=== PATIENT | male | born 1995 | race Caucasian/White ===

== ENCOUNTER 2017-08-25 23:36 | Emergency (ER) | payer OTHER ==
[2017-08-26] MEDS ORDERED: ONDANSETRON HCL INJ/PF 4 MG/2 ML SDV IV ONE (00:24)
[2017-08-26] MEDS ORDERED: MORPHINE SULFATE 10 MG/ML INJ IV ONE ×2 (00:28→03:34)
--- NOTE | 2017-08-26 00:33 | ER Document Report ---
ED General - General Chief Complaint: Low Back Pain Stated Complaint: BACK PAIN Time Seen by Provider: 08/26/17 00:15 Mode of Arrival: Ambulatory Information source: Patient TRAVEL OUTSIDE OF THE [place] IN LAST 30 DAYS: No - HPI Notes: Patient is a 21-year-old male history of asthma and kidney stones presents to the emergency department with report that he fell month and half ago may have injured his back but felt better and then tonight after eating he developed right mid back pain and right upper quadrant pain with associated nausea and vomited once without hematemesis. The patient states the pain came on after he ate. No chest pain or diarrhea or dysuria or hematuria. No fever chills, no numbness or paresthesia - Related Data Allergies/Adverse Reactions: acetaminophen [From Vicodin] Allergy (Verified 08/25/17 23:43) hydrocodone [From Vicodin] Allergy (Verified 08/25/17 23:43) hydromorphone [From Dilaudid] Allergy (Verified 08/25/17 23:43) Past Medical History - General Information source: Patient - Social History Smoking Status: Current Every Day Smoker Frequency of alcohol use: None Drug Abuse: None Lives with: Alone Family History: Reviewed & Not Pertinent Review of Systems - Review of Systems Notes: REVIEW OF SYSTEMS: CONSTITUTIONAL : Denies fever, chills, or sweats. Denies recent illness. EENT: Denies eye, ear, throat, or mouth pain or symptoms. Denies nasal or sinus congestion or discharge. Denies throat, tongue, or mouth swelling or difficulty swallowing. CARDIOVASCULAR: Denies chest pain. Denies palpitations or racing or irregular heart beat. Denies ankle edema. RESPIRATORY: Denies cough, cold, or chest congestion. Denies shortness of breath, difficulty breathing, or wheezing. GASTROINTESTINAL: Denies abdominal distention. Denies diarrhea. Denies blood in vomitus, stools, or per rectum. Denies black, tarry stools. Denies constipation, but last bowel movement was yesterday. GENITOURINARY: Denies difficulty urinating, painful urination, burning, frequency, blood in urine, or discharge. MUSCULOSKELETAL: Denies neck pain or stiffness. Denies joint pain or swelling. SKIN: Denies rash, lesions or sores. HEMATOLOGIC : Denies easy bruising or bleeding. LYMPHATIC: Denies swollen, enlarged glands. NEUROLOGICAL: Denies confusion or altered mental status. Denies passing out or loss of consciousness. Denies dizziness or lightheadedness. Denies headache. Denies weakness or paralysis or loss of use of either side. Denies problems with gait or speech. Denies sensory loss, numbness, or tingling. Denies seizures. PSYCHIATRIC: Denies anxiety or stress. Denies depression, suicidal ideation, or homicidal ideation. ALL OTHER SYSTEMS REVIEWED AND NEGATIVE. Dictation was performed using [employer] voice recognition software Physical Exam - Vital signs Vitals: Temp Pulse Resp BP Pulse Ox 99.1 F 87 20 125/78 96 08/25/17 23:45 08/25/17 23:45 08/25/17 23:45 08/25/17 23:45 08/25/17 23:45 - Notes Notes: PHYSICAL EXAMINATION: GENERAL: Well-appearing, well-nourished and in mild discomfort.. HEAD: Atraumatic, normocephalic. EYES: Pupils equal round and reactive to light, extraocular movements intact, sclera anicteric, conjunctiva are normal. ENT: Nares patent, oropharynx clear without exudates. Moist mucous membranes. NECK: Normal range of motion, supple without lymphadenopathy LUNGS: Breath sounds clear to auscultation bilaterally and equal. No wheezes rales or rhonchi. HEART: Regular rate and rhythm without murmurs ABDOMEN: Soft abdomen. No guarding, no rebound. No masses appreciated. Tender through the right upper quadrant with a positive Villavicencio's. No obvious hepatosplenomegaly Musculoskeletal: Normal range of motion, no pitting or edema. No cyanosis. Pain through the right mid back region seems to radiate from the right upper quadrant. NEUROLOGICAL: Cranial nerves grossly intact. Normal speech, normal gait. Normal sensory, motor exams PSYCH: Normal mood, normal affect. SKIN: Warm, Dry, normal turgor, no rashes or lesions noted. Course - Re-evaluation Re-evalutation: 08/26/17 00:32 IV Zofran and morphine ordered. The patient states his previous reaction to hydrocodone and hydromorphone was nausea, but the patient has tolerated Percocet before. Right upper quadrant abdominal ultrasound, CBC, CMP, lipase and urinalysis ordered. There is concern for acute cholecystitis. Less likely would be renal stone versus constipation as an etiology. - Vital Signs Vital signs: Temp Pulse Resp BP Pulse Ox 99.1 F 87 20 125/78 96 08/25/17 23:45 08/25/17 23:45 08/25/17 23:45 08/25/17 23:45 08/25/17 23:45 Discharge - Discharge Clinical Impression: Abdominal pain Qualifiers: Abdominal location: right upper quadrant Qualified Code(s): R10.11 - Right upper quadrant pain Back pain Qualifiers: Back pain location: back pain in other location Chronicity: acute Qualified Code(s): M54.9 - Dorsalgia, unspecified
[2017-08-26 01:43] LABS: APPEARANCE,URINE SLIGHTLY-CLOUDY; BILIRUBIN,URINE NEGATIVE (NEGATIVE); COLOR,URINE YELLOW; GLUCOSE, URINE NEGATIVE (NEGATIVE); KETONES,URINE NEGATIVE (NEGATIVE); LEUKOCYTE ESTERASE,URINE NEGATIVE (NEGATIVE); NITRITE,URINE NEGATIVE (NEGATIVE); PROTEIN,URINE 30 mg/dL (NEGATIVE); URINE SPECIFIC GRAVITY 1.024; UROBILINOGEN,URINE NEGATIVE mg/dL (<2.0)
[2017-08-26 01:52] LABS: ABSOLUTE BASOPHILS # (AUTO) 0.1 10^3/uL (0.0-0.2); ABSOLUTE LYMPHOCYTES (AUTO) 1.9 10^3/uL (0.5-4.7); ABSOLUTE MONOCYTES (AUTO) 0.8 10^3/uL (0.1-1.4); ABSOLUTE NEUT (AUTO) 9.1 10^3/uL (1.7-8.2); BASOPHILS % (AUTO) 0.7 % (0-2); EOSINOPHILS % (AUTO) 0.2 % (0-6); HEMATOCRIT 45.1 % (37.9-51.0); HEMOGLOBIN 15.5 g/dL (13.5-17.0); MEAN CORPUSCULAR HEMOGLOBIN 28.5 pg (27.0-33.4); MEAN CORPUSCULAR HGB CONC 34.4 g/dL (32.0-36.0); MEAN CORPUSCULAR VOLUME 83 fl (80-97); MONOCYTES % (AUTO) 6.7 % (3-13); PLATELET COUNT 278 10^3/uL (150-450); RED BLOOD COUNT 5.45 10^6/uL (4.35-5.55); SEGMENTED NEUTROPHILS % (AUTO) 76.4 % (42-78); TOTAL CELLS COUNTED % (AUTO) 100 %; WHITE BLOOD COUNT 11.9 10^3/uL (4.0-10.5)
[2017-08-26 02:17] LABS: ALANINE AMINOTRANSFERASE 124 U/L (21-72); ALBUMIN 4.6 g/dL (3.5-5.0); ALKALINE PHOSPHATASE 73 U/L (38-126); ANION GAP 17 (5-19); ASPARTATE AMINO TRANSFERASE 59 U/L (17-59); BILIRUBIN,DIRECT 0.3 mg/dL (0.0-0.4); BILIRUBIN,TOTAL 0.3 mg/dL (0.2-1.3); BLOOD UREA NITROGEN 15 mg/dL (7-20); CALCIUM 10.3 mg/dL (8.4-10.2); CARBON DIOXIDE 25 mmol/L (22-30); CHLORIDE 107 mmol/L (98-107); GLUCOSE 105 mg/dL (75-110); LIPASE 106.3 U/L (23-300); SODIUM 149.4 mmol/L (137-145); TOTAL PROTEIN 7.1 g/dL (6.3-8.2)
--- NOTE | 2017-08-26 02:56 | RADIOLOGY REPORT (SQ) ---
EXAM DESCRIPTION: US ABDOMEN LIMITED CLINICAL HISTORY: 21 years Male, RUQ pain Comparison: None. LIMITATIONS: None. FINDINGS: Gallbladder, negative sonographic Villavicencio's test, moderate hepatic steatosis, a 0.3-cm diameter common bile duct, no intrahepatic ductal dilation, 12-cm right kidney, obscured pancreas, visualized vasculature/abdominal aorta, and no significant ascites appear otherwise unremarkable. IMPRESSION: No acute findings. Hepatic steatosis. Obscured pancreas.
[2017-08-26] MEDS ORDERED: KETOROLAC TROMETHAMINE INJ/PF 30 MG/1 ML SDV IV ONE (03:33)
[2017-08-26] MEDS ORDERED: NORMAL SALINE 1000 ML 1,000 ML IV ONE (03:34)
--- NOTE | 2017-08-26 04:23 | RADIOLOGY REPORT (SQ) ---
EXAM DESCRIPTION: CT ABDOMEN WITHOUT IV CONTRAST CLINICAL HISTORY: 21 years Male, RUQ PAIN THAT BEGAN SUDDEN ONSET AFTER EATING A BURGER. VOMITING X1 Comparison: Ultrasound, same day. Technique: No contrast. Coronal and sagittal reformat. This exam was performed according to our departmental dose-optimization program, which includes automated exposure control, adjustment of the mA and/or kV according to patient size and/or use of iterative reconstruction technique.[facility]: Dose Right [facility]: CareDose [facility]: Dose Right [facility]: Teradose 4D [facility]: [employer] LIMITATIONS: None. Findings: Moderate hepatic steatosis. Normal appendix. Punctate renal stone of each kidney. Unenhanced lower thorax, abdominopelvic structures, and musculoskeleton appear otherwise grossly unremarkable. Impression: No acute findings. Moderate hepatic steatosis. Punctate bilateral nephrolithiasis.
[2017-08-26 05:59] VITALS: BP 126/78
== END 2017-08-26 05:57 | disposition home or self-care (01) ==
LOC: ER 23:36
DX: M54.5 Low back pain (principal); K76.0 Fatty (change of) liver, not elsewhere classified; R10.11 Right upper quadrant pain; R31.9 Hematuria, unspecified; J45.909 Unspecified asthma, uncomplicated; R11.2 Nausea with vomiting, unspecified; F17.200 Nicotine dependence, unspecified, uncomplicated; Z87.442 Personal history of urinary calculi; Z88.5 Allergy status to narcotic agent; Z88.6 Allergy status to analgesic agent
CPT/HCPCS: 96376; 99284; 96361; 96374; 96375; 36415; 83690; 85025; 80053; 81001; 76705; 74150; J1885; J2270; J2405; J7030

== ENCOUNTER 2017-10-21 18:19 | Emergency (ER) | payer SELFPAY ==
[2017-10-21] MEDS ORDERED: NORMAL SALINE 1000 ML 1,000 ML IV ONE ×2 (18:45→21:24)
[2017-10-21] MEDS ORDERED: FENTANYL CITRATE INJ/PF 100 MCG/2 ML AMPUL IV ONE ×2 (18:46→21:24)
--- NOTE | 2017-10-21 18:47 | ER Document Report ---
ED Medical Screen (RME) - General Chief Complaint: Possible Kidney Stone Stated Complaint: BACK PAIN Time Seen by Provider: 10/21/17 18:45 Notes: RAPID MEDICAL EVALUATION DISCLOSURE I have seen this patient as part of a Rapid Medical Evaluation and, if applicable, placed any initially appropriate orders. The patient will be seen and fully evaluated, including a full history and physical exam, by a provider ( in Main ED or Fast Track) when a room becomes available. 21-year-old male PMH left-sided kidney stones here with several hours of left flank pain radiating to the abdomen and down into the groin as well as nausea hematuria decreased urination. He has tried drinking water but has not taken any medicine for the symptoms. He had similar symptoms several months ago and imaging showed "a bunch of kidney stones". TRAVEL OUTSIDE OF THE [place] IN LAST 30 DAYS: No - Related Data Allergies/Adverse Reactions: acetaminophen [From Vicodin] Allergy (Verified 08/25/17 23:43) hydrocodone [From Vicodin] Allergy (Verified 08/25/17 23:43) hydromorphone [From Dilaudid] Allergy (Verified 08/25/17 23:43) Past Medical History Renal/ Medical History: Denies: Hx Peritoneal Dialysis Past Surgical History: Reports: Hx Oral Surgery - jaw Physical Exam - Vital signs Vitals: Temp Pulse Resp BP Pulse Ox 98.8 F 75 18 132/77 H 97 10/21/17 18:24 10/21/17 18:24 10/21/17 18:24 10/21/17 18:24 10/21/17 18:24 Course - Vital Signs Vital signs: Temp Pulse Resp BP Pulse Ox 98.8 F 75 18 132/77 H 97 10/21/17 18:24 10/21/17 18:24 10/21/17 18:24 10/21/17 18:24 10/21/17 18:24
[2017-10-21 19:12] LABS: APPEARANCE,URINE SLIGHTLY-CLOUDY; BILIRUBIN,URINE NEGATIVE (NEGATIVE); COLOR,URINE YELLOW; GLUCOSE, URINE NEGATIVE (NEGATIVE); KETONES,URINE NEGATIVE (NEGATIVE); LEUKOCYTE ESTERASE,URINE NEGATIVE (NEGATIVE); NITRITE,URINE NEGATIVE (NEGATIVE); PROTEIN,URINE NEGATIVE (NEGATIVE); URINE SPECIFIC GRAVITY 1.019
[2017-10-21 19:20] LABS: ABSOLUTE BASOPHILS # (AUTO) 0.1 10^3/uL (0.0-0.2); ABSOLUTE EOSINOPHILS # (AUTO) 0.1 10^3/uL (0.0-0.6); ABSOLUTE LYMPHOCYTES (AUTO) 2.5 10^3/uL (0.5-4.7); ABSOLUTE MONOCYTES (AUTO) 0.6 10^3/uL (0.1-1.4); ABSOLUTE NEUT (AUTO) 4.3 10^3/uL (1.7-8.2); BASOPHILS % (AUTO) 1.1 % (0-2); EOSINOPHILS % (AUTO) 0.8 % (0-6); HEMATOCRIT 45.8 % (37.9-51.0); HEMOGLOBIN 16.1 g/dL (13.5-17.0); LYMPHOCYTES % (AUTO) 33.5 % (13-45); MEAN CORPUSCULAR HEMOGLOBIN 29.2 pg (27.0-33.4); MEAN CORPUSCULAR VOLUME 83 fl (80-97); MONOCYTES % (AUTO) 7.4 % (3-13); PLATELET COUNT 274 10^3/uL (150-450); RED CELL DISTRIBUTION WIDTH 12.8 % (11.5-14.0); SEGMENTED NEUTROPHILS % (AUTO) 57.2 % (42-78); TOTAL CELLS COUNTED % (AUTO) 100 %; WHITE BLOOD COUNT 7.5 10^3/uL (4.0-10.5)
[2017-10-21 19:34] LABS: ALANINE AMINOTRANSFERASE 132 U/L (21-72); ALBUMIN 4.8 g/dL (3.5-5.0); ALKALINE PHOSPHATASE 86 U/L (38-126); ANION GAP 15 (5-19); ASPARTATE AMINO TRANSFERASE 64 U/L (17-59); BILIRUBIN,DIRECT 0.3 mg/dL (0.0-0.4); BILIRUBIN,TOTAL 0.4 mg/dL (0.2-1.3); BLOOD UREA NITROGEN 12 mg/dL (7-20); CALCIUM 9.8 mg/dL (8.4-10.2); CARBON DIOXIDE 24 mmol/L (22-30); CHLORIDE 105 mmol/L (98-107); GLUCOSE 85 mg/dL (75-110); LIPASE 102.8 U/L (23-300); POTASSIUM 4.5 mmol/L (3.6-5.0); SODIUM 144.2 mmol/L (137-145); TOTAL PROTEIN 7.8 g/dL (6.3-8.2)
--- NOTE | 2017-10-21 21:28 | ER Document Report ---
ED GI/ - General Mode of Arrival: Ambulatory Information source: Patient TRAVEL OUTSIDE OF THE [place] IN LAST 30 DAYS: No <ALPA FLORES - Last Filed: 10/21/17 23:46> <DEWEY ALVAREZ - Last Filed: 10/21/17 23:48> - General Chief Complaint: Possible Kidney Stone Stated Complaint: BACK PAIN Time Seen by Provider: 10/21/17 18:45 Notes: Patient is a 21-year-old male with a history of kidney stones presents emergency department complaining of left flank pain, abdominal pain and testicular pain onset today. Patient states that he was officially diagnosed with kidney stones 3 months ago but he has had kidney stones since high school. He states today his pain is more severe and radiates from his left flank into his abdomen and testicles which is abnormal from previous kidney stones. Patient states he has been unable to urinate further stating he was in the bathroom for 2 hours attempting to do so. He states when he did urinate, he only produced a small amount and noticed some hematuria. Patient also complains of some nausea and diarrhea. Patient denies rashes, penile discharge or testicular swelling. (ALPA FLORES) - Related Data Allergies/Adverse Reactions: acetaminophen [From Vicodin] Allergy (Verified 08/25/17 23:43) hydrocodone [From Vicodin] Allergy (Verified 08/25/17 23:43) hydromorphone [From Dilaudid] Allergy (Verified 08/25/17 23:43) Past Medical History - General Information source: Patient - Social History Smoking Status: Current Every Day Smoker Frequency of alcohol use: Occasional Family History: Reviewed & Not Pertinent Patient has suicidal ideation: No Patient has homicidal ideation: No Past Surgical History: Reports: Hx Oral Surgery - jaw <ALPA FLORES - Last Filed: 10/21/17 23:46> Review of Systems - Review of Systems Constitutional: No symptoms reported EENT: No symptoms reported Cardiovascular: No symptoms reported Respiratory: No symptoms reported Gastrointestinal: See HPI, Abdominal pain, Nausea Genitourinary: See HPI, Dysuria, Hematuria, Retention Male Genitourinary: See HPI, Testicular pain Musculoskeletal: No symptoms reported Skin: No symptoms reported Hematologic/Lymphatic: No symptoms reported Neurological/Psychological: No symptoms reported -: Yes All other systems reviewed and negative <ALPA FLORES - Last Filed: 10/21/17 23:46> Physical Exam <ALPA FLORES - Last Filed: 10/21/17 23:46> <DEWEY ALVAREZ - Last Filed: 10/21/17 23:48> - Vital signs Vitals: Temp Pulse Resp BP Pulse Ox 98.8 F 75 18 132/77 H 97 10/21/17 18:24 10/21/17 18:24 10/21/17 18:24 10/21/17 18:24 10/21/17 18:24 - Notes Notes: GENERAL: Alert, interacts well. No acute distress. HEAD: Normocephalic, atraumatic. EYES: Pupils equal, round, and reactive to light. Extraocular movements intact. ENT: Oral mucosa moist, tongue midline. NECK: Full range of motion. Supple. Trachea midline. LUNGS: Clear to auscultation bilaterally, no wheezes, rales, or rhonchi. No respiratory distress. HEART: Regular rate and rhythm. No murmurs, gallops, or rubs. ABDOMEN: Soft, bilateral lower abdomen tenderness to palpation. Non-distended. Bowel sounds present in all 4 quadrants. EXTREMITIES: Moves all 4 extremities spontaneously. NEUROLOGICAL: Alert and oriented x3. Normal speech. PSYCH: Normal affect, normal mood. SKIN: Warm, dry, normal turgor. No rashes or lesions noted. GI/: Left testicle is slightly larger than right. Testicle tender to palpation bilaterally. Cremasteric reflexes intact bilaterally. No fluid in scrotum. No erythema. No penile discharge. BACK: Mild left CVA tenderness to percussion. (ALPA FLORES) Course - Laboratory Result Diagrams: 10/21/17 19:05 10/21/17 19:05 <ALPA FLORES - Last Filed: 10/21/17 23:46> - Laboratory Result Diagrams: 10/21/17 19:05 10/21/17 19:05 <DEWEY ALVAREZ - Last Filed: 10/21/17 23:48> - Re-evaluation Re-evalutation: 10/21/17 23:33 CBC unremarkable, CMP shows elevated AST at 64 and elevated ALT at 132 otherwise unremarkable, lipase normal, urinalysis shows small blood, only 18 RBCs, no evidence of infection, CT scan of the abdomen and pelvis with IV contrast was ordered as the patient does have lower abdominal tenderness palpation particularly over the right lower quadrant, his labs are not classic for kidney stone. CT scan does not reveal any evidence of ureteral stone, hydronephrosis, perinephric stranding, appendicitis or inflammatory change of the intestines. He does have some fatty metamorphosis of the liver without any significant hepatomegaly. At present I do not have an exact explanation for his pain. Torsion is unlikely as he has cremasteric reflexes intact bilaterally and there is no significant swelling to the bilateral testes. Ultrasound will not be performed at this time. Patient has been hydrated with normal saline. Discharge to home, encouraged to drink plenty of fluids and return to the emergency department for worsening abdominal pain, vomiting, fevers or any new or concerning symptoms. (DEWEY ALVAREZ) - Vital Signs Vital signs: Temp Pulse Resp BP Pulse Ox 98.8 F 75 18 132/77 H 97 10/21/17 18:24 10/21/17 18:24 10/21/17 18:24 10/21/17 18:24 10/21/17 18:24 - Laboratory Laboratory results interpreted by me: 10/21/17 10/21/17 18:55 19:05 AST 64 H ALT 132 H Urine Blood SMALL H Urine Urobilinogen 2.0 H Discharge <ALPA FLORES - Last Filed: 10/21/17 23:46> <DEWEY ALVAREZ - Last Filed: 10/21/17 23:48> - Discharge Clinical Impression: Bilateral lower abdominal pain Condition: Stable Disposition: HOME, SELF-CARE Additional Instructions: Today we did not find any abnormalities on CAT scan, there was no evidence of appendicitis, intra-abdominal infection or kidney stone. Your urinalysis showed a small amount of blood but no evidence of infection. Your blood work did not show any signs of infection. Please drink plenty of fluid, take ibuprofen up to 800 mg every 8 hours as needed for pain. Should your pain worsen, you develop swelling to your testicles or scrotum or an inability to urinate and all please return to the emergency department. Please also return for any new or concerning symptoms. Forms: Return to Work Referrals: KATHY VALLADARES MD [GURVINDER ESPINOZA] - Follow up as needed Scribe Attestation: 10/21/17 23:48 I personally performed the services described in the documentation, reviewed and edited the documentation which was dictated to the scribe in my presence, and it accurately records my words and actions. (DEWEY ALVAREZ)
--- NOTE | 2017-10-21 23:29 | RADIOLOGY REPORT (SQ) ---
PROCEDURE: CT of the abdomen and pelvis with intravenous contrast HISTORY: B/L lower abd pain, minimal blood in urine Indication: Same as above Comparison: None . Technique: CT of the abdomen and pelvis was done with intravenous contrast. Images were obtained from the lung base to the level of the pubic symphysis in axial plane, followed by orthogonal sagittal and coronal reconstruction. Oral contrast was not given for the study. The patient was injected with radiographic contrast intravenously, without any documented immediate adverse reactions. This exam was performed according to our departmental dose-optimization program, which includes automated exposure control, adjustment of the mA and/or KV according to the patient's size and/or use of iterative reconstruction technique. FINDINGS: Images through the lung bases do not show any focal infiltrates or pleural effusions. The gallbladder, pancreas, spleen and the bilateral adrenal glands appear unremarkable. There is fatty metamorphosis of the liver The bilateral kidneys enhance with contrast in a normal fashion. The urinary bladder is unremarkable . The bilateral ureters and the bilateral periureteral soft tissues and fat planes are unremarkable. The small bowel appears unremarkable, without any evidence of small bowel obstruction or bowel wall thickening. There is no CT evidence of acute appendicitis, pericecal inflammatory change or ileocecal mesenteric adenitis. The ileocecal junction appears unremarkable. There is no CT evidence of acute colonic diverticulitis or colitis or large bowel obstruction. The splenic and portal veins are of normal caliber, without any filling defects. There is no pathological lymphadenopathy in the retroperitoneum or in the pelvic region. There is no evidence of free fluid or free air in the abdomen or the pelvic region. There is no clinically significant abdominal aortic aneurysm. There is no clinically significant inguinal or ventral hernia. The visualized lumbar spine is unremarkable . The paravertebral soft tissues are unremarkable. The remainder of the pelvic structures are unremarkable. IMPRESSION: There are no acute findings in the abdomen or the pelvis. There is fatty metamorphosis of the liver without any significant hepatomegaly. Location of Interpretation: [facility]
[2017-10-21 23:59] VITALS: BP 123/84
== END 2017-10-22 00:30 | disposition home or self-care (01) ==
LOC: ER 18:19
DX: R10.30 Lower abdominal pain, unspecified (principal); N50.812 Left testicular pain; N50.811 Right testicular pain; R11.0 Nausea; R31.9 Hematuria, unspecified; R33.9 Retention of urine, unspecified; R30.0 Dysuria; F17.200 Nicotine dependence, unspecified, uncomplicated; Z87.442 Personal history of urinary calculi; Z88.6 Allergy status to analgesic agent
CPT/HCPCS: 96376; 99284; 96361; 96374; 36415; 83690; 85025; 80053; 81001; 74177; J3010; J7030

== ENCOUNTER 2018-06-28 06:43 | Emergency (ER) | payer SELFPAY ==
[2018-06-28] MEDS ORDERED: NORMAL SALINE 1000 ML 1,000 ML IV ONE (07:00)
[2018-06-28] MEDS ORDERED: KETOROLAC TROMETHAMINE INJ/PF 30 MG/1 ML SDV IV ONE (07:00)
[2018-06-28 07:13] LABS: ABSOLUTE BASOPHILS # (AUTO) 0.1 10^3/uL (0.0-0.2); ABSOLUTE EOSINOPHILS # (AUTO) 0.1 10^3/uL (0.0-0.6); ABSOLUTE LYMPHOCYTES (AUTO) 2.2 10^3/uL (0.5-4.7); ABSOLUTE MONOCYTES (AUTO) 0.5 10^3/uL (0.1-1.4); ABSOLUTE NEUT (AUTO) 3.8 10^3/uL (1.7-8.2); BASOPHILS % (AUTO) 0.8 % (0-2); EOSINOPHILS % (AUTO) 0.8 % (0-6); HEMATOCRIT 46.2 % (37.9-51.0); HEMOGLOBIN 16.6 g/dL (13.5-17.0); LYMPHOCYTES % (AUTO) 33.7 % (13-45); MEAN CORPUSCULAR HEMOGLOBIN 29.5 pg (27.0-33.4); MEAN CORPUSCULAR HGB CONC 35.8 g/dL (32.0-36.0); MEAN CORPUSCULAR VOLUME 82 fl (80-97); PLATELET COUNT 271 10^3/uL (150-450); SEGMENTED NEUTROPHILS % (AUTO) 56.7 % (42-78); TOTAL CELLS COUNTED % (AUTO) 100 %; WHITE BLOOD COUNT 6.6 10^3/uL (4.0-10.5)
[2018-06-28] MEDS ORDERED: MORPHINE SULFATE 10 MG/ML INJ IV ONE (07:28)
--- NOTE | 2018-06-28 07:32 | ER Document Report ---
ED General - General Chief Complaint: Flank Pain Stated Complaint: FLANK PAIN Time Seen by Provider: 06/28/18 06:59 Primary Care Provider: CHELSY REESE [NO LOCAL MD] - Follow up as needed RICHMOND PADRON MD [NO LOCAL MD] - Follow up in 3-5 days TRAVEL OUTSIDE OF THE [place] IN LAST 30 DAYS: No - HPI Notes: Patient is a 22-year-old male that presents to the emergency department for chief complaint of left flank pain. Patient reports sudden onset of pain in his left flank this morning. He states it started in his back and radiates down to his left groin. He denies any scrotal swelling or penile discharge. He does have a history of kidney stones in the past and states this feels similar but more severe. He has not had pain medication at home. He does report one episode of vomiting and currently feels nauseated. He denies any recent fevers, diarrhea, or constipation. He states the pain is sharp and worse with any movement. He denies relieving factors to his pain. Past Medical History: Kidney stones Past Surgical History: Mandibular surgery to correct underbite Social History: Denies drugs alcohol and tobacco Family History: Reviewed and noncontributory for presenting illness Allergies: Reviewed, see documented allergy list. REVIEW OF SYSTEMS: CONSTITUTIONAL : No fever No chills No diaphoresis No recent illness EENT: No vision changes No congestion No sore throat CARDIOVASCULAR: No chest pain No palpitations RESPIRATORY: No shortness of breath No cough No difficulty breathing GASTROINTESTINAL: abdominal pain Left flank pain No nausea No vomiting No diarrhea GENITOURINARY: No dysuria No hematuria No difficulty urinating MUSCULOSKELETAL: No back pain No leg pain No arm pain SKIN: No rashes No lesions LYMPHATIC: No swollen, enlarged glands. NEUROLOGICAL: No lightheadedness No headache No weakness No paresthesias PSYCHIATRIC: No anxiety No depression PHYSICAL EXAMINATION: Vital signs reviewed, nursing noted reviewed. GENERAL: Appears uncomfortable, well-nourished and in moderate acute distress. HEAD: Atraumatic, normocephalic. EYES: Eyes appear normal, extraocular movements intact, sclera anicteric, conjunctiva are normal. ENT: nares patent, oropharynx clear without exudates. Moist mucous membranes. NECK: Normal range of motion, supple without lymphadenopathy LUNGS: Breath sounds clear to auscultation bilaterally and equal. No wheezes rales or rhonchi. HEART: Regular rate and rhythm without murmurs ABDOMEN: Tenderness to palpation in left upper quadrant, left lower quadrant and with left CVA percussion, soft, nontender, normoactive bowel sounds. No rebound, guarding, or rigidity. No masses appreciated. EXTREMITIES: Nontender, good range of motion, no pitting or edema. NEUROLOGICAL: No focal neurological deficits. Moves all extremities spontaneously Motor and sensory grossly intact on exam. PSYCH: Normal mood, normal affect. SKIN: Warm, Dry, normal turgor, no rashes or lesions noted on exposed skin - Related Data Allergies/Adverse Reactions: hydrocodone [From Vicodin] Allergy (Verified 06/28/18 06:47) hydromorphone [From Dilaudid] Allergy (Verified 06/28/18 06:47) Past Medical History - Social History Smoking Status: Current Every Day Smoker Family History: Reviewed & Not Pertinent Patient has suicidal ideation: No Patient has homicidal ideation: No Renal/ Medical History: Reports: Hx Kidney Stones. Denies: Hx Peritoneal Susanna lysis Past Surgical History: Reports: Hx Oral Surgery - jaw Physical Exam - Vital signs Vitals: Temp Pulse Resp BP Pulse Ox 97.3 F 61 24 H 149/88 H 100 06/28/18 06:52 06/28/18 06:52 06/28/18 06:52 06/28/18 06:52 06/28/18 06:52 Course - Re-evaluation Re-evalutation: 06/28/18 07:32 Vitals reviewed. Nursing notes reviewed. Patient given Toradol and fluids for symptomatic management. On reevaluation he is still having pain although he states it is improved, at this time patient was given a dose of morphine for further pain management. CT will be ordered to evaluate for ureterolithiasis 06/28/18 08:25 Patient reevaluated and had significant improvement of his pain after morphine. He now appears much more comfortable. CT scan shows a 2 mm obstructing left ureterolithiasis. Patient has normal renal function and no associated urinary tract infection. He will be discharged home on Flomax, Percocet and naproxen. He was referred to urology for follow-up. He was counseled on return precautions and verbalized understanding. Patient stable at time of discharge. Laboratory 06/28/18 06/28/18 06/28/18 07:00 07:00 07:38 WBC 6.6 RBC 5.60 H Hgb 16.6 Hct 46.2 MCV 82 MCH 29.5 MCHC 35.8 RDW 13.0 Plt Count 271 Seg Neutrophils % 56.7 Lymphocytes % 33.7 Monocytes % 8.0 Eosinophils % 0.8 Basophils % 0.8 Absolute Neutrophils 3.8 Absolute Lymphocytes 2.2 Absolute Monocytes 0.5 Absolute Eosinophils 0.1 Absolute Basophils 0.1 Sodium 140.4 Potassium 4.3 Chloride 105 Carbon Dioxide 22 Anion Gap 13 BUN 12 Creatinine 0.80 Est GFR ( Amer) > 60 Est GFR (Non-Af Amer) > 60 Glucose 108 Calcium 10.2 Urine Color YELLOW Urine Appearance CLOUDY Urine pH 6.0 Ur Specific [place] 1.024 Urine Protein 100 H Urine Glucose (UA) NEGATIVE Urine Ketones NEGATIVE Urine Blood LARGE H Urine Nitrite NEGATIVE Urine Bilirubin NEGATIVE Urine Urobilinogen NEGATIVE Ur Leukocyte Esterase NEGATIVE Urine WBC (Auto) 3 Urine RBC (Auto) >182 Squamous Epi Cells Auto 1 Urine Mucus (Auto) MANY Urine Ascorbic Acid NEGATIVE Abdomen/Pelvis CT 06/28/18 07:29 IMPRESSION: 1. Mild -moderate left hydronephrosis related to a 2 mm ureteral calculus. - Vital Signs Vital signs: Temp Pulse Resp BP Pulse Ox 97.3 F 61 24 H 149/88 H 100 06/28/18 06:52 06/28/18 06:52 06/28/18 06:52 06/28/18 06:52 06/28/18 06:52 - Laboratory Result Diagrams: 06/28/18 07:00 06/28/18 07:00 Laboratory results interpreted by me: 06/28/18 06/28/18 07:00 07:38 RBC 5.60 H Urine Protein 100 H Urine Blood LARGE H Discharge - Discharge Clinical Impression: Ureterolithiasis Condition: Stable Disposition: HOME, SELF-CARE Instructions: Kidney Stone ([facility]) Additional Instructions: Please return to the emergency department if you have any worsening, or concern of your symptoms. Please return to the emergency department if you develop chest pain, difficulty breathing, severe abdominal pain, or ongoing vomiting. Please follow-up with your primary care physician in 2-3 days and any other recommended physicians. If prescribed, take all medications as directed. If you have any questions or concerns do not hesitate to return the emergency department for evaluation. Prescriptions: Naproxen 500 mg PO BID PRN #30 tablet PRN Reason: Pain Scale Of 1 Oxycodone HCl/Acetaminophen [Percocet 5-325 mg Tablet] 1 tab PO Q4H PRN #10 tablet PRN Reason: Tamsulosin HCl [Flomax 0.4 mg Cap.sr] 0.4 mg PO DAILY #7 cap.sr.24h Forms: Elevated Blood Pressure Referrals: CHELSY REESE [NO LOCAL MD] - Follow up as needed RICHMOND PADRON MD [NO LOCAL MD] - Follow up in 3-5 days
[2018-06-28 07:39] LABS: ANION GAP 13 (5-19); BLOOD UREA NITROGEN 12 mg/dL (7-20); CALCIUM 10.2 mg/dL (8.4-10.2); CARBON DIOXIDE 22 mmol/L (22-30); CHLORIDE 105 mmol/L (98-107); GLUCOSE 108 mg/dL (75-110); POTASSIUM 4.3 mmol/L (3.6-5.0); SODIUM 140.4 mmol/L (137-145)
[2018-06-28] MEDS ORDERED: TAMSULOSIN HCL 0.4 MG CAP.SR.24H PO ONE (08:12)
--- NOTE | 2018-06-28 08:18 | RADIOLOGY REPORT (SQ) ---
EXAM DESCRIPTION: CT ABD/PELVIS NO ORAL OR IV COMPLETED DATE/TIME: 06/28/2018 7:53 am REASON FOR STUDY: left flank pain COMPARISON: None. TECHNIQUE: CT scan of the abdomen and pelvis performed without intravenous or oral contrast. Images reviewed with lung, soft tissue, and bone windows. Reconstructed coronal and sagittal MPR images revi ewed. All images stored on PACS. All CT scanners at this facility use dose modulation, iterative reconstruction, and/or weight based d osing when appropriate to reduce radiation dose to as low as reasonably achievable (ALARA). [facility]: Dose Right [facility]: CareDose [facility]: Dose Right [facility]: Teradose 4D [facility]: Smart [employer] RADIATION DOSE: CT Rad equipment meets quality standard of care and radiation dose reduction techniq ues were employed. CTDIvol: 18.2 mGy. DLP: 1052 mGy-cm.mGy. LIMITATIONS: None. FINDINGS: LOWER CHEST: No significant findings. No nodules or infiltrates. NON-CONTRASTED LIVER, SPLEEN, ADRENALS: Fatty liver. Unremarkable spleen and adrenals. PANCREAS: No masses. No peripancreatic inflammatory changes. GALLBLADDER: No identified stones by CT criteria. No inflammatory changes to suggest cholecystitis. RIGHT KIDNEY AND URETER: No solid masses. No significant calcification. No hydronephrosis or hydroure ter. LEFT KIDNEY AND URETER: Mild-moderate hydronephrosis related to a mid ureteral stone measuring close to 2 mm. Minimal additional upper pole punctate nephrolithiasis. AORTA AND RETROPERITONEUM: No aneurysm. No retroperitoneal masses or adenopathy. BOWEL AND PERITONEAL CAVITY: No obvious masses or inflammatory changes. No free fluid. APPENDIX: Normal. PELVIS, BLADDER, AND ABDOMINAL WALL:No abnormal masses. No free fluid. Bladder normal. BONES: No significant findings. OTHER: No other significant finding. IMPRESSION: 1. Mild -moderate left hydronephrosis related to a 2 mm ureteral calculus. TECHNICAL DOCUMENTATION: JOB ID: [id number] Quality ID # [id number]: Final reports with documentation of one or more dose reduction techniques (e.g., Au tomated exposure control, adjustment of the mA and/or kV according to patient size, use of iterative reconstruction technique) 2010 [employer]- All Rights Reserved Reading location - IP/workstation name: [email or web address]
[2018-06-28 08:21] LABS: APPEARANCE,URINE CLOUDY; BILIRUBIN,URINE NEGATIVE (NEGATIVE); COLOR,URINE YELLOW; GLUCOSE, URINE NEGATIVE (NEGATIVE); KETONES,URINE NEGATIVE (NEGATIVE); LEUKOCYTE ESTERASE,URINE NEGATIVE (NEGATIVE); NITRITE,URINE NEGATIVE (NEGATIVE); PROTEIN,URINE 100 mg/dL (NEGATIVE); URINE SPECIFIC GRAVITY 1.024; UROBILINOGEN,URINE NEGATIVE mg/dL (<2.0)
[2018-06-28 08:39] VITALS: BP 129/77
== END 2018-06-28 08:42 | disposition home or self-care (01) ==
LOC: ER 06:43
DX: N13.2 Hydronephrosis with renal and ureteral calculous obstruction (principal); R11.2 Nausea with vomiting, unspecified; R10.9 Unspecified abdominal pain; R10.812 Left upper quadrant abdominal tenderness; R10.814 Left lower quadrant abdominal tenderness; Z88.5 Allergy status to narcotic agent
CPT/HCPCS: 99284; 96361; 96374; 96375; 36415; 85025; 80048; 81001; 74176; J1885; J2270; J7030

== ENCOUNTER 2018-07-28 07:17 | Emergency (ER) | payer SELFPAY ==
[2018-07-28] MEDS ORDERED: ONDANSETRON HCL INJ/PF 4 MG/2 ML SDV IV ONE (07:46)
[2018-07-28] MEDS ORDERED: NORMAL SALINE 1000 ML 1,000 ML IV ONE (07:46)
[2018-07-28] MEDS ORDERED: KETOROLAC TROMETHAMINE INJ/PF 30 MG/1 ML SDV IV ONE (07:46)
[2018-07-28 08:07] LABS: ABSOLUTE BASOPHILS # (AUTO) 0.1 10^3/uL (0.0-0.2); ABSOLUTE EOSINOPHILS # (AUTO) 0.1 10^3/uL (0.0-0.6); ABSOLUTE LYMPHOCYTES (AUTO) 1.8 10^3/uL (0.5-4.7); ABSOLUTE MONOCYTES (AUTO) 0.5 10^3/uL (0.1-1.4); BASOPHILS % (AUTO) 0.7 % (0-2); EOSINOPHILS % (AUTO) 0.8 % (0-6); HEMATOCRIT 43.9 % (37.9-51.0); HEMOGLOBIN 15.6 g/dL (13.5-17.0); LYMPHOCYTES % (AUTO) 24.6 % (13-45); MEAN CORPUSCULAR HEMOGLOBIN 29.6 pg (27.0-33.4); MEAN CORPUSCULAR HGB CONC 35.5 g/dL (32.0-36.0); MEAN CORPUSCULAR VOLUME 83 fl (80-97); MONOCYTES % (AUTO) 6.3 % (3-13); PLATELET COUNT 264 10^3/uL (150-450); RED BLOOD COUNT 5.26 10^6/uL (4.35-5.55); RED CELL DISTRIBUTION WIDTH 12.8 % (11.5-14.0); SEGMENTED NEUTROPHILS % (AUTO) 67.6 % (42-78); TOTAL CELLS COUNTED % (AUTO) 100 %; WHITE BLOOD COUNT 7.4 10^3/uL (4.0-10.5)
[2018-07-28 08:31] LABS: ALANINE AMINOTRANSFERASE 74 U/L (21-72); ALBUMIN 4.6 g/dL (3.5-5.0); ALKALINE PHOSPHATASE 83 U/L (38-126); ANION GAP 9 (5-19); ASPARTATE AMINO TRANSFERASE 35 U/L (17-59); BILIRUBIN,DIRECT 0.2 mg/dL (0.0-0.4); BILIRUBIN,TOTAL 0.6 mg/dL (0.2-1.3); BLOOD UREA NITROGEN 13 mg/dL (7-20); CALCIUM 10.1 mg/dL (8.4-10.2); CARBON DIOXIDE 24 mmol/L (22-30); CHLORIDE 108 mmol/L (98-107); GLUCOSE 104 mg/dL (75-110); LIPASE 457.8 U/L (23-300); TOTAL PROTEIN 7.3 g/dL (6.3-8.2)
--- NOTE | 2018-07-28 09:22 | RADIOLOGY REPORT (SQ) ---
EXAM DESCRIPTION: U/S SCROTUM W/DOPPLER COMPLETED DATE/TIME: 07/28/2018 9:10 am REASON FOR STUDY: testicular pain COMPARISON: None. TECHNIQUE: Static and realtime mullins scale imaging of the scrotum and testes. Selected color Doppler and spectral images recorded to document blood flow. LIMITATIONS: None. FINDINGS: RIGHT: TESTICLE: The right testicle measures 2.6 x 4.0 x 1.6 cm. Normal size. Normal echotexture. Normal blood flow. No mass. EPIDIDYMIS: The head of the epididymis measures 1.2 x 0.7 x 0.5 cm. Normal. HYDROCELE OR VARICOCELE: No. HERNIA OR EXTRA-TESTICULAR MASS: No. OTHER: No other significant finding. LEFT: TESTICLE: The left testicle measures 2.8 x 3.4 x 2.0 cm. Normal size. Normal echotexture. Normal b lood flow. No mass. EPIDIDYMIS: The head of the epididymis measures 1.1 x 0.7 x 0.5 cm. Normal. HYDROCELE OR VARICOCELE: Varicocele lateral aspect of the scrotum in the area of the patient's pain. Some of the largest vessels measure 2.4 mm in AP diameter. HERNIA OR EXTRA-TESTICULAR MASS: No. OTHER: No other significant finding. IMPRESSION: 1. The testicles are sonographically unremarkable in appearance. 2. Left varicocele. TECHNICAL DOCUMENTATION: JOB ID: [id number]- All Rights Reserved Reading location - IP/workstation name: [email or web address]
[2018-07-28] MEDS ORDERED: TAMSULOSIN HCL 0.4 MG CAP.SR.24H PO ONE (09:30)
[2018-07-28] MEDS ORDERED: MORPHINE SULFATE 10 MG/ML INJ IV ONE (09:30)
[2018-07-28 09:54] LABS: APPEARANCE,URINE SLIGHTLY-CLOUDY; BILIRUBIN,URINE NEGATIVE (NEGATIVE); COLOR,URINE YELLOW; GLUCOSE, URINE NEGATIVE (NEGATIVE); KETONES,URINE NEGATIVE (NEGATIVE); LEUKOCYTE ESTERASE,URINE NEGATIVE (NEGATIVE); NITRITE,URINE NEGATIVE (NEGATIVE); PROTEIN,URINE NEGATIVE (NEGATIVE); UROBILINOGEN,URINE NEGATIVE mg/dL (<2.0)
--- NOTE | 2018-07-28 10:20 | ER Document Report ---
ED General - General Chief Complaint: Testicular Pain Stated Complaint: TESTICULAR PAIN Time Seen by Provider: 07/28/18 07:31 TRAVEL OUTSIDE OF THE [place] IN LAST 30 DAYS: No - HPI Notes: Patient is a 22-year-old male who presents to the emergency department for evaluation of testicular pain. He states he was seen in the emergency department in [place]. He was diagnosed with kidney stones. He is been taking ketorolac at home, states this is primarily been controlling his pain. He states that he has had testicular pain with his kidney stones in the past, but this seems more intense. He states it started this morning. He states he is having some urinary hesitancy. He is not currently taking Flomax. No fevers or chills. He has had some intermittent nausea but no emesis in the last 72 hours. He denies any bill hematuria. He is currently sexually active but denies any history of STI's. He has no lesions in the area per the patient. No penile discharge. - Related Data Allergies/Adverse Reactions: hydrocodone [From Vicodin] Allergy (Verified 06/28/18 06:47) hydromorphone [From Dilaudid] Allergy (Verified 06/28/18 06:47) Past Medical History - General Information source: Patient - Social History Smoking Status: Current Every Day Smoker Frequency of alcohol use: None Drug Abuse: None Family History: Reviewed & Not Pertinent, Other - Kidney stones Patient has suicidal ideation: No Patient has homicidal ideation: No Renal/ Medical History: Reports: Hx Kidney Stones. Denies: Hx Peritoneal Dialysis Past Surgical History: Reports: Hx Oral Surgery - jaw Review of Systems - Review of Systems Constitutional: No symptoms reported EENT: No symptoms reported Cardiovascular: No symptoms reported Respiratory: No symptoms reported Gastrointestinal: See HPI Genitourinary: See HPI Male Genitourinary: No symptoms reported Musculoskeletal: No symptoms reported Skin: No symptoms reported Neurological/Psychological: No symptoms reported Physical Exam - Vital signs Vitals: Temp Pulse Resp BP Pulse Ox 97.8 F 73 18 157/78 H 98 07/28/18 07:22 07/28/18 07:22 07/28/18 07:22 07/28/18 07:22 07/28/18 07:22 - Notes Notes: Vital signs reviewed, please refer to chart. Patient is normocephalic, atraumatic. Pupils equal round, reactive to light. Neck is supple without meningismus. Heart is regular rate and rhythm. Lungs are clear to auscultation bilaterally. Abdomen is soft, mildly tender, normoactive bowel sounds throughout. Extremities without cyanosis, clubbing, edema. Peripheral pulses are equal. Skin is warm and dry. Patient is awake, alert, neurological exam is nonfocal. Course - Vital Signs Vital signs: Temp Pulse Resp BP Pulse Ox 97.8 F 73 18 157/78 H 98 07/28/18 07:22 07/28/18 07:22 07/28/18 07:22 07/28/18 07:22 07/28/18 07:22 - Laboratory Result Diagrams: 07/28/18 07:50 07/28/18 07:50 Laboratory results interpreted by me: 07/28/18 07/28/18 07:50 09:37 Chloride 108 H ALT 74 H Lipase 457.8 H Urine Blood LARGE H Discharge - Discharge Clinical Impression: Testicular pain, Renal colic on left side Condition: Stable Disposition: HOME, SELF-CARE Instructions: Abdominal Pain ([facility]), Oral Narcotic Medication ([facility]), Toradol Injection ([facility]) Additional Instructions: Rest, stay well-hydrated. Follow-up with your primary care physician as well as urology this week. Take medications as prescribed. Return to the emergency department with worsening or new concerning symptoms. Prescriptions: Ketorolac Tromethamine [Toradol 10 mg Tablet] 10 mg PO Q8HP PRN #15 tablet PRN Reason: Pain Scale Of 4 Ondansetron [Zofran Odt 4 mg Tablet] 1 tab PO Q4H PRN #15 tab.rapdis PRN Reason: For Nausea/Vomiting Oxycodone HCl/Acetaminophen [Percocet 5-325 mg Tablet] 1 tab PO Q6 #10 tablet Tamsulosin HCl [Flomax 0.4 mg Cap.sr] 0.4 mg PO DAILY #7 cap.sr.24h Forms: Elevated Blood Pressure
[2018-07-28 10:50] VITALS: BP 132/85
== END 2018-07-28 10:57 | disposition home or self-care (01) ==
LOC: ER 07:17
DX: N20.0 Calculus of kidney (principal); N50.819 Testicular pain, unspecified; R39.11 Hesitancy of micturition; R11.0 Nausea; F17.200 Nicotine dependence, unspecified, uncomplicated; Z88.5 Allergy status to narcotic agent
CPT/HCPCS: 99284; 96361; 96374; 96375; 36415; 83690; 85025; 80053; 81001; 76870; 93976; J1885; J2270; J2405; J7030